=== PATIENT | male | born 1955 | race Caucasian/White ===

== ENCOUNTER 2022-06-28 18:50 | Emergency (ER) | payer OTHER ==
[~2022-06-28] VITALS: Ht 167.6 cm; Wt 72.6 kg
[2022-06-28 18:59] VITALS: BP_SYST 179
[2022-06-28 21:14] LABS: BASOPHILS # (AUTO) 0.1 K/uL (0.0-0.2); BASOPHILS % (AUTO) 0.7 % (0.0-2.0); EOSINOPHILS # (AUTO) 0.2 K/uL (0.0-0.4); EOSINOPHILS % (AUTO) 1.3 % (0.0-4.0); HEMATOCRIT 43.3 % (36-54); HEMOGLOBIN 14.9 g/dL (14.0-18.0); LYMPHOCYTES % (AUTO) 16.4 % (20.5-51.5); MEAN CORPUSCULAR HEMOGLOBIN 29 pg (27-31); MEAN CORPUSCULAR HGB CONC 34 % (32-36); MEAN CORPUSCULAR VOLUME 84 fL (79.0-98.0); MONOCYTES # (AUTO) 0.7 K/uL (0.0-1.0); NEUTROPHILS # (AUTO) 9.1 K/uL (1.8-7.7); NEUTROPHILS % (AUTO) 75.6 % (40.0-70.0); PLATELET COUNT (AUTO) 194 K/uL (130-430); RED BLOOD CELL COUNT(AUTO) 5.13 MIL/uL (4.2-6.2); RED CELL DISTRIBUTION WIDTH 13.3 % (9.0-15.0); WHITE BLOOD COUNT (AUTO) 12.1 K/uL (4.8-10.8)
[2022-06-28 21:29] LABS: CALCIUM 9.3 mg/dL (8.4-11.0); CREATININE 1.1 mg/dL (0.55-1.30); POTASSIUM 3.8 mmol/L (3.5-5.1)
--- NOTE | 2022-06-28 22:44 | NUR ---
Patient ambulatory to bed 1 for evaluation
[2022-06-28] MEDS ORDERED: LIDOCAINE 1% 10 MG/ML, 20 ML MDV INJ ONE (23:00)
[2022-06-28] MEDS ORDERED: HYDR-3917 PO (23:37)
[2022-06-28] MEDS ORDERED: AUG875 PO (23:37)
[2022-06-28] MEDS ORDERED: DOCU-144 PO (23:41)
--- NOTE | 2022-06-28 23:41 | NUR ---
PT IS AA&OX4. NAD, AFEBRILE, C/O 10/10 PAIN ON RECTAL ABSCESS. SEEN & EXAMINED BY MD. I&D PERFORMED BY MD. ALL DUE MEDS GIVEN ORDERED.KEPT COMFORTABLE. NEEDS ANTICIPATED.
--- NOTE | 2022-06-28 23:42 | NUR ---
I&D Procedure done by Dr cuello using sterile technique. Lidocaine 1% used. Wound packed with . Adaptic, 4x4 and angie to wound. amt of bleeding noted. Wound care discussed w/ patient. Pt tolerated procedure well.
[2022-06-28] MEDS ORDERED: HYDROcodone/ACETAMIN 5-325 MG TAB (NORCO/ VICODIN) PO ONE (23:45)
--- NOTE | 2022-06-28 23:55 | NUR ---
Patient given written and verbal discharge instructions and verbalizes understanding. ER MD discussed with patient the results and treatment provided. Patient in stable condition. . Rx of NORCO, AZITHROMYCIN & DSS given. Patient educated on pain management and to follow up with PMD. Pain Scale . Opportunity for questions provided and answered. Medication side effect fact sheet provided.
== END 2022-06-29 00:03 | disposition home or self-care (01) ==
LOC: SED 18:50
DX: K61.0 Anal abscess (principal); K62.89 Other specified diseases of anus and rectum; E11.9 Type 2 diabetes mellitus without complications; Z79.899 Other long term (current) drug therapy
CPT/HCPCS: 46050; 99284; 74176; 80048; 85025; 36415; 76376; J2001